=== PATIENT | female | born 1995 | race Caucasian/White ===

== ENCOUNTER 2020-04-15 20:56 | Emergency (ER) | payer BC, MEDICAID ==
[~2020-04-15] VITALS: Ht 167.6 cm; Wt 88.9 kg
[2020-04-15 21:00] VITALS: BP 143/87
--- NOTE | 2020-04-15 21:06 | NUR ---
PT TAKEN TO BED 04 WITH STEADY GAIT.
--- NOTE | 2020-04-15 22:04 | NUR ---
24 Y/O MALE C/O CONSTIPATED X 4 DAYS. ALSO C/O PAIN THROBBING 7/10 PAIN IN PERIANAL. X1 DAY. DENIES N/V/D. DENIES FEVER/COUGH. ABD SOFT NON TENDER. *NO NARCOTICS* PT IS IN REHAB FOR DRUG USE. MHX: ANEMIC, HISTORY OF METH USE. ALLERGIES: NKA
[2020-04-15] MEDS ORDERED: KETOROLAC 60 MG/2 ML VIAL IM ONE (22:10)
[2020-04-15 22:30] VITALS: BP 143/87
--- NOTE | 2020-04-15 22:30 | NUR ---
Patient discharged with v/s stable. Written and verbal after care instructions given and explained. Patient alert, oriented and verbalized understanding of instructions. Ambulatory with steady gait. All questions addressed prior to discharge. ID band removed. Patient advised to follow up with PMD. Rx of MINERAL OIL, MIRALAX given. Patient educated on indication of medication including possible reaction and side effects. Opportunity to ask questions provided and answered.
== END 2020-04-15 22:30 | disposition home or self-care (01) ==
LOC: MED 20:56
DX: K59.00 Constipation, unspecified (principal); R03.0 Elevated blood-pressure reading, without diagnosis of hypertension
CPT/HCPCS: 81025; 96372; 99283; J1885

== ENCOUNTER 2020-06-06 14:52 | Emergency (ER) | payer MEDICAID ==
[~2020-06-06] VITALS: Ht 170.2 cm; Wt 86.2 kg
[2020-06-06 15:05] VITALS: BP 122/76
--- NOTE | 2020-06-06 15:07 | NUR ---
Patient in tent for covid precaution
--- NOTE | 2020-06-06 15:10 | NUR ---
Pt c/o chills and sob since yesterday s/p finding out + covid contact at [facility]. RR even and unlabored, does not appear in distress. Afebrile upon arrival. Skin warm and dry. VSS medhx: anemia
[2020-06-06 16:15] VITALS: BP 122/76
--- NOTE | 2020-06-06 16:15 | NUR ---
Patient discharged with v/s stable. Written and verbal after care instructions given and explained. Patient alert, oriented and verbalized understanding of instructions. Ambulatory with steady gait. All questions addressed prior to discharge. ID band removed. Patient advised to follow up with PMD. Rx of Vistaril 25mg given. Patient educated on indication of medication including possible reaction and side effects. Patient instructed not to drive while taking prescribed medication. Advised drowsiness could occur. Opportunity to ask questions provided and answered. Patient advised COVID results would take 1-3 days.
== END 2020-06-06 16:15 | disposition home or self-care (01) ==
LOC: MED 14:52
DX: R06.02 Shortness of breath (principal); Z20.828 Contact with and (suspected) exposure to other viral communicable diseases; D64.9 Anemia, unspecified; Z98.890 Other specified postprocedural states
CPT/HCPCS: 71045; 99284; U0003

== ENCOUNTER 2020-06-07 10:11 | Emergency (ER) | payer MEDICAID, SELFPAY ==
[~2020-06-07] VITALS: Ht 170.2 cm; Wt 86.2 kg
[2020-06-07 10:33] VITALS: BP 138/60
--- NOTE | 2020-06-07 10:38 | NUR ---
Pt + covid contact at facility, asymptomatic medhx: anemia
--- NOTE | 2020-06-07 11:04 | NUR ---
Dr. Machado is evaluating the patient in the OF tent.
[2020-06-07 11:31] VITALS: BP 138/60
--- NOTE | 2020-06-07 11:32 | NUR ---
Patient discharged with v/s stable. Written and verbal after care instructions given and explained. Patient verbalized understanding. Ambulatory with steady gait. All questions addressed prior to discharge. Advised to follow up with PMD.
== END 2020-06-07 11:32 | disposition home or self-care (01) ==
LOC: MED 10:11
DX: D64.9 Anemia, unspecified (principal)
CPT/HCPCS: 99281

== ENCOUNTER 2021-02-02 11:07 | Emergency (ER) | payer MEDICAID, SELFPAY ==
[~2021-02-02] VITALS: Ht 172.7 cm; Wt 101.8 kg
[2021-02-02 11:12] VITALS: BP 141/62
--- NOTE | 2021-02-02 11:32 | NUR ---
Patient ambulated to bed 12. RN evaluating the patient at bedside.
--- NOTE | 2021-02-02 11:47 | NUR ---
25/F presents to ED with c/o rash. Patient states since Sunday she has had a rash on left inner thigh with no relief. 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 Circular, red rash noted to left inner thigh, appear red and swollen, tender to touch. Patient states she bought "ringworm cream" but states no relief, denies taking anything for pain. Describes it as 8/10 burning constant pain that worsens if site is touched.
[2021-02-02] MEDS ORDERED: FLUCONAZOLE 100 MG TAB PO ONE (12:10)
[2021-02-02] MEDS ORDERED: LOTC TP (12:11)
[2021-02-02] MEDS ORDERED: LORA10SG1 PO (12:11)
[2021-02-02] MEDS ORDERED: CRUSHER, PILL MC ONE (12:15)
[2021-02-02 12:34] VITALS: BP 141/62
--- NOTE | 2021-02-02 12:34 | NUR ---
Patient discharged with v/s stable. Written and verbal after care instructions given and explained. Patient alert, oriented and verbalized understanding of instructions. Ambulatory with steady gait. All questions addressed prior to discharge. ID band removed. Patient advised to follow up with PMD. Rx of Claritin and Lotrimin given. Patient educated on indication of medication including possible reaction and side effects. Opportunity to ask questions provided and answered. Patient provided with protable phone to contact ride.
== END 2021-02-02 12:34 | disposition home or self-care (01) ==
LOC: MED 11:07
DX: B35.9 Dermatophytosis, unspecified (principal); Z79.899 Other long term (current) drug therapy; Z98.890 Other specified postprocedural states
CPT/HCPCS: 99283

== ENCOUNTER 2021-04-09 11:46 | Emergency (ER) | payer MEDICAID ==
[~2021-04-09] VITALS: Ht 172.7 cm; Wt 100.7 kg
[~2021-04-09 11:46] MED LIST: LORA10SG1 PO; LOTC TP
[2021-04-09 11:58] VITALS: BP 116/81
[2021-04-09] MEDS ORDERED: IBUP-2213 PO (12:23)
--- NOTE | 2021-04-09 12:28 | NUR ---
PT'S LEFT MIDDLE FINGER PLACED IN ALUMINUM FINGER SPLINT. CMS WNL BEFORE AND AFTER.
[2021-04-09 12:33] VITALS: BP 116/81
--- NOTE | 2021-04-09 12:33 | NUR ---
Work excuse provided for 04/09-04/10.
--- NOTE | 2021-04-09 12:33 | NUR ---
Patient discharged with v/s stable. Written and verbal after care instructions given and explained. Patient alert, oriented and verbalized understanding of instructions. Ambulatory with steady gait. All questions addressed prior to discharge. ID band removed. Patient advised to follow up with PMD. Rx of Ibuprofen 600mg given. Patient educated on indication of medication including possible reaction and side effects. Opportunity to ask questions provided and answered.
== END 2021-04-09 12:33 | disposition home or self-care (01) ==
LOC: MED 11:46
DX: S69.92XA Unspecified injury of left wrist, hand and finger(s), initial encounter (principal); M79.645 Pain in left finger(s); D64.9 Anemia, unspecified; Z79.899 Other long term (current) drug therapy; Z98.890 Other specified postprocedural states; X58.XXXA Exposure to other specified factors, initial encounter; Y93.89 Activity, other specified; Y92.89 Other specified places as the place of occurrence of the external cause; Y99.8 Other external cause status
CPT/HCPCS: 99283

== ENCOUNTER 2023-12-02 12:48 | Emergency (ER) | payer MEDICAID ==
[~2023-12-02] VITALS: Ht 172.7 cm; Wt 90.7 kg
[~2023-12-02 12:48] MED LIST changes: +IBUP-2213 PO
[2023-12-02 13:03] VITALS: BP 125/54; PULSE 71; RESP 18; TEMP 97.8; O2SAT 98
[2023-12-02] MEDS ORDERED: HYD1C TP (13:36)
[2023-12-02] MEDS ORDERED: IBUP-2213 PO (13:36)
== END 2023-12-02 13:51 | disposition home or self-care (01) ==
LOC: MED 12:48
DX: M79.671 Pain in right foot (principal); Z79.899 Other long term (current) drug therapy
CPT/HCPCS: 99282

== ENCOUNTER 2024-02-16 11:39 | Emergency (ER) | payer MEDICAID ==
[~2024-02-16] VITALS: Ht 172.7 cm; Wt 83.9 kg
[~2024-02-16 11:39] MED LIST changes: +HYD1C TP
[2024-02-16 11:45] VITALS: BP 135/85; PULSE 93; RESP 14; TEMP 97.8; O2SAT 97
[2024-02-16] MEDS: IBUPROFEN 400 MG TAB PO ONE (13:10)
[2024-02-16] MEDS: ACETAMINOPHEN EXTRA STRENGTH 500 MG TAB PO ONE (13:12)
[2024-02-16] MEDS ORDERED: CEPH-588 PO (13:45)
[2024-02-16] MEDS ORDERED: IBUP-2213 PO (13:46)
[2024-02-16 14:16] VITALS: BP 140/90; PULSE 81; RESP 16; TEMP 97.5; O2SAT 98
== END 2024-02-16 14:10 | disposition home or self-care (01) ==
LOC: MED 11:39
DX: L03.115 Cellulitis of right lower limb (principal); Z79.899 Other long term (current) drug therapy
CPT/HCPCS: 73630; 81025; 99283; Q0092

== ENCOUNTER 2024-03-24 20:55 | Emergency (ER) | payer MEDICAID ==
[~2024-03-24] VITALS: Ht 172.7 cm; Wt 99.8 kg
[~2024-03-24 20:55] MED LIST changes: +CEPH-588 PO
[2024-03-24 21:10] VITALS: BP 117/58; PULSE 97; RESP 18; TEMP 98.1; O2SAT 97
[2024-03-24 22:21] LABS: BASOPHILS % (AUTO) 0.1 % (0.0-2.0); EOSINOPHILS # (AUTO) 0.1 K/uL (0-0.4); EOSINOPHILS % (AUTO) 0.9 % (0.0-4.0); HEMATOCRIT 37.7 % (36-48); HEMOGLOBIN 12.4 g/dL (12.0-16.0); LYMPHOCYTES # (AUTO) 1.2 K/uL (2.5-16.5); LYMPHOCYTES % (AUTO) 17.1 % (20.5-51.1); MEAN CORPUSCULAR HEMOGLOBIN 27 pg (27-31); MEAN CORPUSCULAR HGB CONC 33 g/dL (33-37); MEAN CORPUSCULAR VOLUME 82.6 fL (80-94); MONOCYTES # (AUTO) 0.6 K/uL (0.8-1.0); MONOCYTES % (AUTO) 8.6 % (1.7-9.3); NEUTROPHILS # (AUTO) 5.2 K/uL (1.8-7.7); NEUTROPHILS % (AUTO) 73.3 % (42.2-75.2); PLATELET COUNT (AUTO) 240 K/uL (140-450); RED BLOOD CELL COUNT(AUTO) 4.57 MIL/uL (4.20-5.40); RED CELL DISTRIBUTION WIDTH 13.9 % (11.6-13.7); WHITE BLOOD COUNT (AUTO) 7.1 K/uL (4.8-10.8)
[2024-03-24 22:38] LABS: ANION GAP 12.3 (8-16); CALCIUM 8.1 mg/dL (8.5-10.1); CARBON DIOXIDE 25.6 mmol/L (21-32); CREATININE 0.7 mg/dL (0.6-1.3); POTASSIUM 3.9 mmol/L (3.5-5.1)
[2024-03-24 22:38] LABS: APPEARANCE,URINE CLEAR (CLEAR); BILIRUBIN,URINE NEGATIVE (NEGATIVE); BLOOD, URINE NEGATIVE (NEGATIVE); COLOR,URINE YELLOW (YELLOW); LEUKOCYTE ESTERASE ,URINE NEGATIVE (NEGATIVE); NITRITE, URINE NEGATIVE (NEGATIVE); PROTEIN,URINE NEGATIVE (NEGATIVE); UGLUCOSE NEGATIVE (NEGATIVE); UROBILINOGEN,URINE 0.2 EU/dL (0.2 - 1)
[2024-03-24 22:43] LABS: ALBUMIN 3.2 g/dL (3.4-5.0); BILIRUBIN,DIRECT 0.1 mg/dL (0.0-0.3); TOTAL BILIRUBIN 0.5 mg/dL (0.0-1.0); TOTAL PROTEIN, SERUM 7.1 g/dL (6.4-8.2)
[2024-03-25] MEDS ORDERED: ACET500T99 PO (00:23)
[2024-03-25 00:30] VITALS: BP 117/58; PULSE 97; RESP 18; TEMP 98.1; O2SAT 97
== END 2024-03-25 00:30 | disposition home or self-care (01) ==
LOC: MED 20:55
DX: R10.30 Lower abdominal pain, unspecified (principal); R19.7 Diarrhea, unspecified; R63.0 Anorexia; Z79.899 Other long term (current) drug therapy
CPT/HCPCS: 36415; 80048; 80076; 81003; 81025; 83690; 85025; 99283